=== PATIENT | male | born 1970 | race African-American/Black ===

== ENCOUNTER 2018-04-06 08:06 | Emergency (ER) | payer OTHER, SELFPAY ==
[2018-04-06 08:07] VITALS: BP 141/95; PULSE 74; RESP 18; TEMP 36.4; O2SAT 98; BMI 42.1
--- NOTE | 2018-04-06 08:20 | EKG12_ITS ---
Test Reason : REPEAT CP Blood Pressure : / mmHG Vent. Rate : 065 BPM Atrial Rate : 065 BPM P-R Int : 194 ms QRS Dur : 088 ms QT Int : 358 ms P-R-T Axes : 052 -21 014 degrees QTc Int : 372 ms Normal sinus rhythm Normal ECG Confirmed by ILEANA GUSMAN, KIARRA ([id number]), acquisitions editor ROWAN KHAN ([id number]) on 04/07/2018 11:54:03 AM Referred By: JACKI Confirmed By:KIARRA TEJEDA MD
[2018-04-06] MEDS: Aspirin 81 MG TAB.CHEW 324 MG PO (08:26)
[2018-04-06 08:27] VITALS: O2SAT 99
--- NOTE | 2018-04-06 08:34 | RAD_ITS ---
STUDY: X-RAY CHEST REASON FOR EXAM: Male, 47 years old. Chest pain. TECHNIQUE: PA and lateral views. COMPARISON: 11/20/2015. FINDINGS: The lungs are clear and expanded. There is no demonstrated pleural abnormality. Normal size heart. Normal mediastinum and solomon. Normal visualized pulmonary arteries. Normal visualized aortic arch and descending thoracic aorta. Normal visualized thoracic spine. Normal visualized ribs, clavicles, and shoulders. There is no demonstrated abnormality of the visualized soft tissue structures of the upper abdomen. RAD/Chest PA and Lateral IMPRESSION: Normal x-ray examination of the chest and unchanged since 11/20/2015. Electronically Signed: Jez Cortés MD at 8:52 EDT , Service support ,
[2018-04-06 08:40] LABS: Absolute Lymphocyte Count 2.49 X10^3/ul (0.83-4.51); Absolute Neutrophil Count 2.9 X10^3/uL (2.0-7.7); Basophil# 0.01 X10^3/uL; Basophil% 0.2 % (0-1); Eosinophil# 0.21 X10^3/uL; Eosinophils% 3.3 % (0-5); Hematocrit 40.9 % (40-54); Lymphocyte # 2.49 X10^3/ul (4.0); Lymphocyte % 39.7 % (19-41); Mean Corp Hgb Conc 31.8 g/gl (32-36); Mean Corpuscular Hgb 29.5 pg (27.0-32.0); Mean Platelet Vol. 9.8 fl (6.2-12.0); Monocyte# 0.61 X10^3/uL; Monocyte% 9.7 % (0-10); Neutrophil # 2.94 X10^3/uL (2.7-7.7); Neutrophil % 46.9 % (47-70); Platelet Count 372 K/mm3 (150-450); RBC Distribution Width SD 44.3 fl (35.1-43.9); White Blood Count 6.3 K/mm3 (4.4-11.0)
[2018-04-06 08:41] LABS: POSITIVE COUNT NO; POSITIVE DIFFERENTIAL NO; POSITIVE MORPHOLOGY NO
[2018-04-06 08:53] LABS: Anion Gap 5 (5-15); BUN 20 mg/dL (7-18); BUN/Creat Ratio 18.7 RATIO (10-20); Calcium,Total 9.2 mg/dL (8.5-10.1); Chloride 101 mmol/L (98-107); Creatinine, Serum 1.07 mg/dL (0.70-1.30); EST Glomerular Filtration Rate 78 mL/min (>60); Est Glom Filt Rate - Afr Amer 95 mL/min (>60); Estimated Creatinine Clearance 89.92 ml/min; Glucose 100 mg/dL (74-106); Potassium 3.9 mmol/L (3.5-5.1); Sodium Level 137 mmol/L (136-145)
--- NOTE | 2018-04-06 08:59 | EKG12_ITS ---
Test Reason : CP Blood Pressure : / mmHG Vent. Rate : 062 BPM Atrial Rate : 062 BPM P-R Int : 196 ms QRS Dur : 088 ms QT Int : 352 ms P-R-T Axes : 066 -20 009 degrees QTc Int : 357 ms Normal sinus rhythm Normal ECG Confirmed by ILEANA GUSMAN, KIARRA ([id number]), film editor supervisor ROWAN KHAN ([id number]) on 04/07/2018 11:54:22 AM Referred By: JACKI Confirmed By:KIARRA TEJEDA MD
[2018-04-06 09:21] VITALS: BP 128/86; PULSE 69; RESP 21; O2SAT 97
[2018-04-06 10:12] VITALS: BP 134/79; PULSE 65; RESP 23; O2SAT 97
--- NOTE | 2018-04-06 11:00 | ED.VISSUMM ---
- ER Visit Summary Date of Service: 04/06/18 Chief Complaint: Chest pain History of Present Illness: The patient is a 47 M who presents with chest pain. It began about an hour and a half prior to presentation while at work. It lasted about 8-10 minutes. He describes it as sharp pain in the center and left side of his chest. There was no associated nausea vomiting or diaphoresis. He felt short of breath. After drinking some water this seemed to improve and currently he is symptom-free. Physical Examination: Afebrile vitals are unremarkable Moist mucous membranes Heart regular rate and rhythm Lungs clear Abdomen soft Extremities nontender without edema 2+ radial pulses Test Results: EKG shows sinus rhythm at a rate of 62 with no acute ischemic changes. Repeat EKG is unchanged. Chest x-ray is normal. CBC BMP normal. Troponin negative. Repeat troponin remains negative. Emergency Department Course and Treatment: Patient's presentation is atypical. He has no cardiac risk factors except obesity. His RUBEN risk score is 0, heart score is 2. I feel this is unlikely to be due to cardiac ischemia. My suspicion is with his history of reflux improvement drinking water this may have been esophageal spasm. He was advised to follow-up with his primary care physician and does understand to return for new or worsening symptoms. All questions answered bedside. Patient agreeable to the plan. Patient discharged. Treatment Plan: [] Disposition: Discharge Impression: Chest pain This note was generated with [employer] dictation software. It may contain incorrect words, spelling, and punctuation that were not noted in review of the chart prior to signing ED Disposition - Plan for ED Patient: Chief Complaint: Chest Pain Referrals: Care Physician,No Primary [Primary Care Provider] -
--- NOTE | 2018-04-06 11:03 | ED.DEP ---
ED Disposition - Plan for ED Patient: Chief Complaint: Chest Pain Instructions: ED Chest Pain Atypical Unkn Cause Referrals: Care Physician,No Primary [Primary Care Provider] -
[2018-04-06 11:11] VITALS: BP 135/64; PULSE 61; RESP 15; O2SAT 98
== END 2018-04-06 11:12 | disposition home or self-care (01) ==
LOC: ED 08:31
PROVIDERS: Emergency Provider Emergency Medicine
DX: R07.9 Chest pain, unspecified (principal); R06.00 Dyspnea, unspecified; K21.9 Gastro-esophageal reflux disease without esophagitis
CPT/HCPCS: 71046; 80048; 84484; 85025; 93005; 99284; A4216